=== PATIENT | male | born 2000 | race Caucasian/White ===

== ENCOUNTER 2021-07-12 11:28 | Emergency (ER) | payer SELFPAY ==
[2021-07-12 11:47] VITALS: BP 139/79; PULSE 80
--- NOTE | 2021-07-12 12:14 | EDM.PDOC ---
ED HPI GENERAL MEDICAL PROBLEM - General Chief Complaint: General Stated Complaint: POSSIBLE PNEUMONIA / NEG COVID TEST Time Seen by Provider: 07/12/21 12:00 Source of Information: Reports: Patient History Limitations: Reports: No Limitations - History of Present Illness INITIAL COMMENTS - FREE TEXT/NARRATIVE: 20 y/o M c/o fever, cough, sob since Wednesday. Recent travel to [place] where he was on vacation for four days. Reports the firends he traveled with all got sic but there symptoms have resolved on their own without intervention. Reports fever of 102. Took tylenol 2 days ago but nothing since. Feels feverish today. Has been coughing up phelgm with blood tinge to it. Denies barrera, vision prob, neck pn, cp, abd pn, pelvic pn, diff voding, constipation, diarrhea, ext pain, drugs, etoh. Generalized Pain Score (Numeric/FACES): 5 - Related Data Allergies Allergy/AdvReac Type Severity Reaction Status Date / Time No Known Allergies Allergy Verified 07/12/21 11:43 Home Meds: Home Meds Amphetamine/Dextroamphetamine [Adderall XR] 30 mg PO DAILY 07/12/21 [History] Past Medical History Psychiatric History: Reports: ADHD - Infectious Disease History Infectious Disease History: Reports: None - Past Surgical History HEENT Surgical History: Reports: Adenoidectomy, Tonsillectomy Social & Family History - Family History Family Medical History: Unobtainable - Caffeine Use Caffeine Use: Reports: Coffee, Soda - Alcohol Use Days Per Week of Alcohol Use: 1 Number of Drinks Per Day: 10 Total Drinks Per Week: 10 - Recreational Drug Use Recreational Drug Use: No ED ROS GENERAL - Review of Systems Review Of Systems: Comprehensive ROS is negative, except as noted in HPI. ED EXAM, GENERAL - Physical Exam Exam: See Below General Appearance: Alert, No Apparent Distress Ears: Normal External Exam, Normal Canal, Hearing Grossly Normal, Normal TMs Nose: Normal Inspection, Normal Mucosa, No Blood Throat/Mouth: Normal Inspection, Normal Lips, Normal Teeth, Normal Gums, Normal Oropharynx, Normal Voice, No Airway Compromise Head: Atraumatic, Normocephalic Neck: Supple, Non-Tender, Full Range of Motion, Lymphadenopathy (R) Respiratory/Chest: No Respiratory Distress, Lungs Clear, Normal Breath Sounds, No Accessory Muscle Use, Chest Non-Tender Cardiovascular: Normal Peripheral Pulses, Regular Rate, Rhythm, No Edema, No Gallop, No JVD, No Murmur, No Rub GI/Abdominal: Soft, Non-Tender (Male) Exam: Deferred Rectal (Males) Exam: Deferred Back Exam: Normal Inspection, Full Range of Motion Extremities: Normal Inspection, Normal Range of Motion, Non-Tender, Normal Capillary Refill, No Pedal Edema Neurological: Alert, Oriented, CN II-XII Intact, Normal Cognition, Normal Gait, Normal Reflexes, No Motor/Sensory Deficits Skin Exam: Warm, Dry, Intact Course - Vital Signs Last Recorded V/S: Last Vital Signs Temp 97.2 F 07/12/21 11:44 Pulse 80 07/12/21 11:44 Resp 18 07/12/21 11:44 BP 139/79 07/12/21 11:44 Pulse Ox 97 07/12/21 11:44 - Orders/Labs/Meds Labs: Laboratory Tests 07/12/21 07/12/21 07/12/21 Range/Units 12:00 12:11 12:11 WBC 9.7 (5.0-10.0) 10^3/uL RBC 5.16 (4.6-6.2) 10^6/uL Hgb 14.5 (14.0-18.0) g/dL Hct 42.3 (40.0-54.0) % MCV 82.0 (80-100) fL MCH 28.1 (27.0-34.0) pg MCHC 34.3 (33.0-35.0) g/dL Plt Count 180 (150-450) 10^3/uL Neut % (Auto) 65.8 (42.2-75.2) % Lymph % (Auto) 19.2 L (20.5-50.1) % [place] % (Auto) 13.9 H (2-8) % Eos % (Auto) 1.0 (1.0-3.0) % Baso % (Auto) 0.1 (0.0-1.0) % Sodium 141 (136-145) mmol/L Potassium 3.9 (3.5-5.1) mmol/L Chloride 103 (98-107) mmol/L Carbon Dioxide 25 (21-32) mmol/L Anion Gap 16.9 H (7-13) mEq/L BUN 10 (7-18) mg/dL Creatinine 0.96 (0.70-1.30) mg/dL Est Cr Clr Drug Dosing 133.60 mL/min Estimated GFR (MDRD) > 60 BUN/Creatinine Ratio 10.4 (No establ ref range) Glucose 89 (70-99) mg/dL Calcium 9.0 (8.5-10.1) mg/dL Total Bilirubin 0.5 (0.2-1.0) mg/dL AST 26 (15-37) U/L ALT 50 (16-63) U/L Alkaline Phosphatase 43 L (46-116) U/L C-Reactive Protein 6.0 H (0.0-0.9) mg/dL Total Protein 8.0 (6.4-8.2) g/dL Albumin 4.0 (3.4-5.0) g/dL Globulin 4.0 Albumin/Globulin Ratio 1.0 Influenza Type A RNA Positive H (NEGATIVE) Influenza Type B RNA Negative (NEGATIVE) SARS-CoV-2 RNA ([place]) Negative (NEGATIVE) Departure - Departure Time of Disposition: 13:09 Disposition: Home, Self-Care 01 Condition: Fair Clinical Impression: Influenza A - Discharge Information *PRESCRIPTION DRUG MONITORING PROGRAM REVIEWED*: Not Applicable *COPY OF PRESCRIPTION DRUG MONITORING REPORT IN PATIENT NURA: Not Applicable Instructions: Influenza, Adult, [id number] Referrals: PCP,None [Primary Care Provider] - Forms: ED Department Discharge Additional Instructions: Continue to drink plenty of fluids to maintain hydration. Use tylenol and ibuprofen for fever and pain control. If any new symptoms or concerns develop contact your primary care facility or return to the ER. Sepsis Event Note (ED) - Evaluation Sepsis Screening Result: No Definite Risk
--- NOTE | 2021-07-12 12:32 | CR ---
PROCEDURE INFORMATION: Exam: XR Chest Exam date and time: 07/12/2021 12:06 PM Age: 20 years old Clinical indication: Cough and fever and shortness of breath; Additional info: Cough, fever, SOB TECHNIQUE: Imaging protocol: XR of the chest. Views: 1 view. COMPARISON: No relevant prior studies available. FINDINGS: Lungs: Unremarkable. No consolidation. Pleural spaces: Unremarkable. No pleural effusion. No pneumothorax. Heart/Mediastinum: Unremarkable. No cardiomegaly. Bones/joints: Unremarkable. IMPRESSION: No acute findings.
[2021-07-12 12:36] LABS: ANION GAP 16.9 mEq/L (7-13); CHLORIDE,CL 103 mmol/L (98-107); SODIUM,NA 141 mmol/L (136-145)
[2021-07-12 12:57] LABS: CORONAVIRUS COVID-19 NAA NEGATIVE (NEGATIVE)
== END 2021-07-12 13:14 | disposition home or self-care (01) ==
LOC: DL.ED 11:28
DX: J10.1 Influenza due to other identified influenza virus with other respiratory manifestations (principal); Z20.822 Contact with and (suspected) exposure to COVID-19
CPT/HCPCS: 0240U; 36415; 71045; 80053; 85025; 86140; 99285

== ENCOUNTER 2022-01-14 15:54 | Emergency (ER) | payer SELFPAY | END 2022-01-14 16:16 | disposition left against medical advice (07) | LOC: DL.ED 15:54 | DX: Z53.21 Procedure and treatment not carried out due to patient leaving prior to being seen by health care provider (principal) ==